=== PATIENT | female | born 1990 ===

== ENCOUNTER 2016-12-23 13:19 | Emergency (ER) | payer BC, MEDICAID, OTHER ==
[2016-12-23 13:27] VITALS: BMI 25.6
[2016-12-23 13:33] VITALS: RESP 18; O2SAT 98
[2016-12-23 13:43] VITALS: BP 111/76; PULSE 84; TEMP 98.5
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
== END 2016-12-23 14:04 | disposition home or self-care (01) ==
LOC: SUPCPDRO 13:19 → C.ER 13:19
DX: S40.011A Contusion of right shoulder, initial encounter (principal); V43.52XA Car driver injured in collision with other type car in traffic accident, initial encounter; Y92.410 Unspecified street and highway as the place of occurrence of the external cause